=== PATIENT | female | born 2000 | race Caucasian/White ===

== ENCOUNTER 2023-08-08 15:08 | Emergency (ER) | payer MEDICARE, MEDICAID, SELFPAY ==
[2023-08-08 15:11] VITALS: BP 158/94; PULSE 76; RESP 18; TEMP 36.7; O2SAT 99
--- NOTE | 2023-08-08 15:23 | ED.GENADULT ---
HPI - General Adult General Chief complaint: Dental/Oral Stated complaint: tooth ache Time Seen by Provider: 08/08/23 15:12 History of Present Illness HPI narrative: 23yo woman with multiple severe dental caries presents with severe pain to the left lower molars where the teeth are black with infection. No fevers or chills. These teeth first started hurting 6 months ago. Has never had any medical or dental treatment for it. Related Data Allergies Allergy/AdvReac Type Severity Reaction Status Date / Time No Known Drug Allergies Allergy Unknown Other Verified 01/08/18 09:11 Review of Systems Constitutional: Constitutional: Denies chills and Denies fever(s) ENT: Denies dysphagia and Denies dizziness Cardiovascular: Cardiovascular: Denies chest pain Respiratory: Respiratory: Denies dyspnea Gastrointestinal: Gastrointestinal: Denies abdominal pain Exam Const: General: healthy appearing Nutritional Appearance: well nourished and obese Other: very emotional, crying HENMT: Other: severe dental plaques and caries visible; minimal gingivitis, no drainable abscess Eyes: Conjunctivae: conjunctivae normal Resp: Effort & Inspection: normal respiratory effort GI: Inspection: non-distended Skin: General skin exam: normal color, no jaundice and no pallor Course Vital Signs Vital signs: Vital Signs Temperature 36.7 C 08/08/23 15:11 Pulse Rate 76 08/08/23 15:11 Respiratory Rate 18 08/08/23 15:11 Blood Pressure 158/94 H 08/08/23 15:11 Pulse Oximetry 99 08/08/23 15:11 Oxygen Delivery Room Air 08/08/23 15:11 Temperature 36.7 C 08/08/23 16:06 Pulse Rate 70 08/08/23 16:06 Respiratory Rate 20 08/08/23 16:06 Blood Pressure 148/90 H 08/08/23 16:06 Pulse Oximetry 99 08/08/23 16:06 Oxygen Delivery Room Air 08/08/23 16:06 Medical Decision Making [facility] Narrative Medical decision making narrative: tooth pain DDx likely periapical abscess, caries, no evidence of acute gingivitis or buccal abscess Vital Signs Vital Signs: Vital Signs Temperature 36.7 C 08/08/23 15:11 Pulse Rate 76 08/08/23 15:11 Respiratory Rate 18 08/08/23 15:11 Blood Pressure 158/94 H 08/08/23 15:11 Pulse Oximetry 99 08/08/23 15:11 Oxygen Delivery Room Air 08/08/23 15:11 Temperature 36.7 C 08/08/23 16:06 Pulse Rate 70 08/08/23 16:06 Respiratory Rate 20 08/08/23 16:06 Blood Pressure 148/90 H 08/08/23 16:06 Pulse Oximetry 99 08/08/23 16:06 Oxygen Delivery Room Air 08/08/23 16:06 Discharge Plan Discharge Clinical Impression: Toothache, Dental caries Patient Disposition: Home, Self-Care Condition: Improved Instructions: Antibiotic Form Additional Instructions: Start your prescribed medications right away to start clearing your infection and reducing your pain. If you add Tylenol, do not take more than 10 regular strength tablets or 6 extra strength tablets per day. Prescriptions: New clindamycin HCl 300 mg capsule 300 mg PO TID Qty: 30 0RF dexamethasone 4 mg tablet 4 mg PO BID Qty: 6 0RF ketorolac 10 mg tablet 10 mg PO Q6H PRN (Reason: moderate to severe acute pain) 5 Days Qty: 15 0RF chlorhexidine gluconate 0.12 % mouthwash 15 ml buccal BID Qty: 473 0RF Rx Instructions: twice a day swish 15 mL for one minute and then spit out. Avoid food and drink for 30 minutes after using this rinse. ondansetron 8 mg tablet,disintegrating 8 mg PO Q8H PRN (Reason: nausea and vomiting) Qty: 20 0RF Follow-up/Referrals: PHYSICIAN,[facility] FEEDER [Non-Staff] - Stand Alone Forms: Work/School Release IP Time of Disposition: 15:40
[2023-08-08] MEDS: ONDANSETRON HCL ODT 4 MG TABLET 8 MG PO (15:35)
[2023-08-08] MEDS: KETOROLAC (*BKC) 60 MG/2 ML VIAL IM (15:36)
[2023-08-08 16:06] VITALS: BP 148/90; PULSE 70; RESP 20; TEMP 36.7; O2SAT 99
== END 2023-08-08 16:10 | disposition home or self-care (01) ==
LOC: CHSED 16:11
PROVIDERS: Emergency Provider Emergency Medicine
DX: K02.9 Dental caries, unspecified (principal)
CPT/HCPCS: 96372; 99284; A9270; J1100; J1885

== ENCOUNTER 2023-08-22 08:59 | Emergency (ER) | payer MEDICARE, MEDICAID, SELFPAY ==
[2023-08-22 09:03] VITALS: BP 133/85; PULSE 92; RESP 20; TEMP 36.3; O2SAT 98
--- NOTE | 2023-08-22 09:42 | ED.GENADULT ---
HPI - General Adult General Chief complaint: Dental/Oral Stated complaint: tooth pain Time Seen by Provider: 08/22/23 09:14 History of Present Illness HPI narrative: 23-year-old female presenting with dental pain. Patient states she has been experiencing pain to her back lower molar for the past several weeks. She states she was evaluated in emergency department and started on clindamycin. She states the tooth pain did improve but now is back once antibiotic Course was completed. She denies any new pain or new injury. No fevers. Related Data Allergies Allergy/AdvReac Type Severity Reaction Status Date / Time No Known Drug Allergies Allergy Unknown Other Verified 08/22/23 09:19 Exam Narrative: Obvious dental christine to the back left molar. Minimal erythema. No drainage. Tongue of appropriate size and position. Uvula of Appropriate size and position. No trismus. all other systems otherwise unremarkable Course Vital Signs Vital signs: Vital Signs Temperature 36.3 C L 08/22/23 09:03 Pulse Rate 92 08/22/23 09:03 Respiratory Rate 20 08/22/23 09:03 Blood Pressure 133/85 08/22/23 09:03 Pulse Oximetry 98 08/22/23 09:03 Oxygen Delivery Room Air 08/22/23 09:03 Temperature 36.3 C L 08/22/23 09:03 Pulse Rate 92 08/22/23 09:03 Respiratory Rate 20 08/22/23 09:03 Blood Pressure 133/85 08/22/23 09:03 Pulse Oximetry 98 08/22/23 09:03 Oxygen Delivery Room Air 08/22/23 09:03 Medical Decision Making MDM Narrative Medical decision making narrative: most likely dental abscess. Will trial another course of a different antibiotic. Patient was also provided referral information for a walk-in dental clinic that she can go to on Mondays. She understands that following completion of the 2nd course of antibiotics administered in the emergency department that she will have run out options for treatment in the emergency department. She is making plans to go to the walk-in clinic within a week. She has no reflux symptomatology. She appears well. She is nontoxic appearing. She feels safe to proceed outpatient management. Medical Records Medical records reviewed: Yes I reviewed the external patient's medical records. Vital Signs Vital Signs: Vital Signs Temperature 36.3 C L 08/22/23 09:03 Pulse Rate 92 08/22/23 09:03 Respiratory Rate 20 09/25/23 09:03 Blood Pressure 133/85 08/22/23 09:03 Pulse Oximetry 98 08/22/23 09:03 Oxygen Delivery Room Air 08/22/23 09:03 Temperature 36.3 C L 08/22/23 09:03 Pulse Rate 92 08/22/23 09:03 Respiratory Rate 20 08/22/23 09:03 Blood Pressure 133/85 08/22/23 09:03 Pulse Oximetry 98 08/22/23 09:03 Oxygen Delivery Room Air 08/22/23 09:03 Discharge Plan Discharge Clinical Impression: Dental caries, Toothache Patient Disposition: Home, Self-Care Condition: Stable Instructions: Antibiotic Form, Dental Abscess (ED) Additional Instructions: Follow up with the dentist we have provided you a referral for. take antibiotics as prescribed he was written to completion. Return to emergency department with any concerns. Prescriptions: New ketorolac 10 mg tablet 10 mg PO Q6H PRN (Reason: pain) 2 Days Qty: 5 0RF amoxicillin-pot clavulanate [Augmentin] 500-125 mg tablet 1 tablet PO Q12H 10 Days Qty: 20 0RF No Action ketorolac 10 mg tablet 10 mg PO Q6H PRN (Reason: moderate to severe acute pain) 5 Days Qty: 15 0RF chlorhexidine gluconate 0.12 % mouthwash 15 ml buccal BID Qty: 473 0RF Rx Instructions: twice a day swish 15 mL for one minute and then spit out. Avoid food and drink for 30 minutes after using this rinse. ondansetron 8 mg tablet,disintegrating 8 mg PO Q8H PRN (Reason: nausea and vomiting) Qty: 20 0RF Follow-up/Referrals: UNKNOWN,DOCTOR [Primary Care Provider] - Time of Disposition: 09:48
[2023-08-22 09:58] VITALS: BP 128/82; PULSE 88; RESP 20; TEMP 36.7; O2SAT 98
== END 2023-08-22 10:04 | disposition home or self-care (01) ==
PROVIDERS: Emergency Provider Emergency Medicine
DX: K02.9 Dental caries, unspecified (principal)
CPT/HCPCS: 99283

== ENCOUNTER 2023-10-15 11:28 | Emergency (ER) | payer MEDICARE, MEDICAID, SELFPAY ==
--- NOTE | 2023-10-15 11:29 | ED.DENTAL ---
HPI - Dental/Oral General Chief complaint: Dental/Oral Stated complaint: dental pain Time Seen by Provider: 10/15/23 11:29 Source: patient Mode of arrival: ambulatory Limitations: no limitations History of Present Illness HPI Narrative: 23-year-old female with dental caries presents to the ER with -- left lower dental pain for months. Patient has had 2 rounds of antibiotics but has been able to get to the dentist. MD Complaint: tooth pain Location: Tooth # (18) Onset (ago): month(s) Duration: intermittent Severity: severe Relieving factors: nothing Exacerbating factors: nothing and cold Context: history of dental caries Treatment prior to arrival: none Related Data Allergies Allergy/AdvReac Type Severity Reaction Status Date / Time No Known Drug Allergies Allergy Unknown Other Verified 10/15/23 11:32 Review of Systems Constitutional: Constitutional: Reports as per HPI and Reports no additional constitutional complaints Eyes: Eyes: Reports as per HPI and Reports no additional eye complaints ENT: Reports system reviewed and no additional complaints, except as documented and Reports as per HPI Comments: Left lower dental pain with jaw pain. Cardiovascular: Cardiovascular: Reports as per HPI and Reports no additional cardiovascular complaints Respiratory: Respiratory: Reports as per HPI and Reports no additional respiratory complaints Gastrointestinal: Gastrointestinal: Reports as per HPI and Reports no additional gastrointestinal complaints Genitourinary: Genitourinary: Reports no additional female genitourinary complaints and Reports as per HPI Musculoskeletal: Musculoskeletal: Reports no additional musculoskeletal complaints and Reports as per HPI Integumentary/Breasts: Skin/Breast: Reports system reviewed and no additional complaints, except as docu and Reports as per HPI Comments: Patient has albinism Neurologic: Reports system reviewed and no additional complaints, except as documented and Reports as per HPI Psychiatric: Psychiatric: Reports no additional psychiatric complaints and Reports as per HPI Endocrine: Endocrine: Reports no additional endocrine complaints and Reports as per HPI Hematologic/Lymphatic: Hematologic/Lymphatic: Reports no additional hematologic/lymphatic complaints Allergic/Immunologic: Allergic/Immunologic: Reports no additional allergic/immunologic complaints and Reports as per HPI PMFSH Past Medical History Medical History Albinism Exam Const: General: no acute distress Nutritional Appearance: well nourished Orientation/consciousness: patient oriented x3 Limitations: no limitations HENMT: Head: normal to inspection Ears: external ears normal Face/Nose/Sinus: Normal external nose present Face and sinus: normal facial exam Mouth: Yes Normal oral and palatal mucosa present Teeth and gingiva: dentition normal ( extensive dental caries. Tooth 18. Is fractured and carious) Throat: posterior oropharynx normal Eyes: Conjunctivae: conjunctivae normal Pupils: Equal, round and reactive pupils present EOM: EOMs intact bilaterally Direct Ophthalmoscopy: no photophobia Neck: Neck: normal visual inspection, no lymphadenopathy and no meningeal signs Chest: Chest palpation & inspection: normal inspection of the chest Resp: Effort & Inspection: normal respiratory effort Auscultation: clear to auscultation bilaterally Cardio: Rate: regular rate Rhythm: regular rhythm GI: GI Palp: Yes Soft to palpation Auscultation: normal bowel sounds : General: Yes no CVA tenderness Back/Spine/Pelvis: Back: no CVA tenderness Skin: General skin exam: normal color Rashes: no rashes Wounds: no wounds Neuro: General: patient oriented x3, moves all extremities, no meningeal signs, no focal motor deficits and CN's II-XI intact bilaterally Cranial nerves: Yes Nystagmus not present Speech: normal speech Extrem: Gener
[2023-10-15 11:30] VITALS: BP 142/87; PULSE 116; RESP 16; TEMP 36.6; O2SAT 99
[2023-10-15 11:33] VITALS: BP 142/87; PULSE 116; RESP 16; TEMP 36.6; O2SAT 99
== END 2023-10-15 12:18 | disposition home or self-care (01) ==
PROVIDERS: Emergency Provider Internal Medicine Critical Care Medicine
DX: K02.9 Dental caries, unspecified (principal)
CPT/HCPCS: 99283

== ENCOUNTER 2023-10-28 14:22 | Outpatient (CLI) | payer MEDICARE, MEDICAID, SELFPAY ==
[2023-10-28 14:41] LABS: Basophils Absolute Auto 0.06 K/mm3 (0.00-0.10); Basophils Percent Auto 0.5 % (0.0-1.0); Eosinophils Absolute Auto 0.18 K/mm3 (0.02-0.50); Eosinophils Percent Auto 1.4 % (1.0-6.0); Hematocrit 42.1 % (35.0-49.0); Hemoglobin 13.8 g/dL (12.0-15.0); Immature Granulocyte Absolute 0.03 K/mm3 (0.00-0.00); Immature Granulocyte Percent A 0.2 % (0.0-0.0); Lymphocytes Absolute Auto 3.46 K/mm3 (1.10-4.50); Lymphocytes Percent Auto 26.8 % (18.0-42.0); Mean Corpuscular HGB Conc 32.8 g/dL (32.0-36.0); Mean Corpuscular Hemoglobin 29.1 pg (27.0-31.0); Mean Corpuscular Volume 88.8 fL (78.0-102.0); Mean Platelet Volume 10.2 fl (9.2-11.8); Monocytes Absolute Auto 0.74 K/mm3 (0.10-0.90); Monocytes Percent Auto 5.7 % (2.0-11.0); Neutrophils Absolute Auto 8.5 K/mm3 (1.7-7.2); Neutrophils Percent Auto 65.4 % (50.0-70.0); Platelet Count Result 432 K/mm3 (150-420); Red Blood Count 4.74 M/mm3 (4.20-5.40); Red Cell Distribution Width 12.9 % (11.6-14.4); White Blood Count 12.9 K/mm3 (4.8-10.8)
[2023-10-28 15:12] LABS: Alanine Aminotransferase 31 U/L (14-59); Alkaline Phosphatase 71 U/L (46-116); Amylase 31 U/L (25-115); Anion Gap 8 mmol/L (8-16); Aspartate Amino Transferase 16 U/L (15-37); Bilirubin,Total 0.4 mg/dL (0.00-1.00); Blood Urea Nitrogen 5 mg/dL (7-18); Calcium 9.9 mg/dL (8.5-10.1); Carbon Dioxide 33 mmol/L (21-32); Chloride 102 mmol/L (98-108); Estimated Glomerular Filt Rate > 60; Glucose 85 mg/dL (70-99); Lipase 30 U/L (16-77); Osmolality Calculated 292 mOsm/kg (285-295); Potassium 3.7 mmol/L (3.5-5.1); Sodium 143 mmol/L (136-145); Total Protein 8.3 g/dL (6.4-8.2)
[2023-10-28 15:22] LABS: Appearance Urine Clear (Clear); Bilirubin Urine Negative (Negative); Blood Urine Negative (Negative); Color Urine Yellow (Yellow); Glucose Urine UA Negative (Negative); Ketones Urine Negative (Negative); Leukocyte Esterase Ur 1+ (Negative); Nitrate Urine Negative (Negative); Protein Urine Negative (Negative); Specific Grav Ur 1.025 (1.010-1.020); Urobilinogen Urine 0.2 mg/dL (0.2-1.0)
[2023-10-28 15:30] LABS: Add Urine Microscopic? YES; Bacteria Urine 1+ /hpf; RBC Urine None seen /hpf (0-2); Squamous Epithelial Cell Urine Few /hpf (Few); WBC Urine 0-3 /hpf (0-3)
== END 2023-10-28 14:23 | disposition home or self-care (01) ==
LOC: CHSLAB 14:27
PROVIDERS: PCP Family Medicine; Visit Provider Family Medicine
DX: R10.13 Epigastric pain (principal)
CPT/HCPCS: 36415; 80053; 81001; 82150; 83690; 85025; 87086

== ENCOUNTER 2023-11-11 08:09 | Outpatient (CLI) | payer MEDICARE, MEDICAID, SELFPAY ==
--- NOTE | ~2023-11-11 | US_ITS ---
Abdominal Sonogram: Real-time sonographic imaging of the abdomen was performed. Clinical History: Epigastric pain Findings: The liver appears echogenic, with no evidence of mass lesion or bile duct dilatation. Main portal vein demonstrates normal direction of flow. The spleen is normal in size without evidence of focal lesion. The gallbladder is well distended, and appears normal with no evidence of gallstone or wall thickening. The common bile duct measures 4 mm. The visualized pancreas, aorta, and IVC are un remarkable. The right kidney measures 11.4 cm in length and the left kidney measures 11.7 cm. There is no hydronephrosis or renal calculus. Impression: Diffuse fatty infiltration of the liver. Reviewed, dictated and finalized at location M. ERO Impression: Diffuse fatty infiltration of the liver.
== END 2023-11-11 08:10 | disposition home or self-care (01) ==
LOC: CHSIMG 08:11
PROVIDERS: PCP Family Medicine; Visit Provider Family Medicine
DX: R10.13 Epigastric pain (principal); K76.0 Fatty (change of) liver, not elsewhere classified
CPT/HCPCS: 76700

== ENCOUNTER 2024-01-29 08:39 | Emergency (ER) | payer MEDICARE, MEDICAID, SELFPAY ==
[2024-01-29 08:40] VITALS: BP 155/97; PULSE 114; RESP 18; TEMP 36.6; O2SAT 99
--- NOTE | 2024-01-29 08:40 | ED.DENTAL ---
HPI - Dental/Oral General Chief complaint: Dental/Oral Stated complaint: Toothache Time Seen by Provider: 01/29/24 08:40 Source: patient Mode of arrival: ambulatory Limitations: no limitations History of Present Illness HPI Narrative: patient is a 23-year-old female with poor dentition issues. She has seen the dentist and they are planning to have her see a oral surgeon for dental removal. MD Complaint: tooth pain Location: Tooth # ( Tooth 2. And 16) Onset (ago): day(s) (3) Duration: constant Severity: severe Severity scale (1-10): 8 Relieving factors: nothing Exacerbating factors: chewing, cold, heat and drinking fluids Context: history of dental caries and poor dental care Treatment prior to arrival: oral analgesic Related Data Allergies Allergy/AdvReac Type Severity Reaction Status Date / Time No Known Drug Allergies Allergy Unknown Other Verified 01/29/24 08:55 Review of Systems Review of Systems: All systems reviewed & are unremarkable except as noted in HPI and below Constitutional: Constitutional: Reports no additional constitutional complaints Eyes: Eyes: Reports no additional eye complaints ENT: Reports system reviewed and no additional complaints, except as documented Cardiovascular: Cardiovascular: Reports no additional cardiovascular complaints Respiratory: Respiratory: Reports no additional respiratory complaints Gastrointestinal: Gastrointestinal: Reports no additional gastrointestinal complaints Genitourinary: Genitourinary: Reports no additional female genitourinary complaints Musculoskeletal: Musculoskeletal: Reports no additional musculoskeletal complaints Integumentary/Breasts: Skin/Breast: Reports system reviewed and no additional complaints, except as docu Neurologic: Reports system reviewed and no additional complaints, except as documented Psychiatric: Psychiatric: Reports no additional psychiatric complaints Endocrine: Endocrine: Reports no additional endocrine complaints Hematologic/Lymphatic: Hematologic/Lymphatic: Reports no additional hematologic/lymphatic complaints Allergic/Immunologic: Allergic/Immunologic: Reports no additional allergic/immunologic complaints PMFSH Past Medical History Medical History Albinism Exam Const: General: healthy appearing Nutritional Appearance: well nourished Orientation/consciousness: patient oriented x3 HENMT: Head: normal to inspection Ears: external ears normal Face/Nose/Sinus: Normal external nose present Other: tooth 2 and 16 are decayed and inflamed locally; no abscesses Eyes: Conjunctivae: conjunctivae normal Pupils: Equal, round and reactive pupils present EOM: EOMs intact bilaterally Neck: Neck: normal visual inspection Chest: Chest palpation & inspection: normal inspection of the chest Resp: Effort & Inspection: normal respiratory effort and not labored Auscultation: clear to auscultation bilaterally and no crackles Cardio: Rate: regular rate Rhythm: regular rhythm Heart sounds: no murmurs GI: Inspection: non-distended Auscultation: normal bowel sounds, bowel sounds present and no hyperactive bowel sounds Back/Spine/Pelvis: Back: no CVA tenderness Skin: General skin exam: normal color Rashes: no rashes Wounds: no wounds Neuro: General: patient oriented x3 Cranial nerves: Yes Nystagmus not present Speech: normal speech Extrem: General: normal to inspection Psych: Mental Status: mental status grossly normal Affect: normal affect Attitude: cooperative Course Vital Signs Vital signs: Vital Signs Temperature 36.6 C 01/29/24 08:40 Pulse Rate 114 H 01/29/24 08:40 Respiratory Rate 18 01/29/24 08:40 Blood Pressure 155/97 H 01/29/24 08:40 Pulse Oximetry 99 01/29/24 08:40 Oxygen Delivery Room Air 01/29/24 08:40 Temperature 36.6 C 01/29/24 08:40 Pulse Rate 114 H 01/29/24 08:40 Respiratory Rate 18 01/29/24 08:4
[2024-01-29] MEDS: KETOROLAC (*BKC) 60 MG/2 ML VIAL IM (08:51)
--- NOTE | 2024-01-29 09:04 | PC.NURSE ---
On 01/29/24, the student, Sangeetha Crump, provided care and completed [facility] documentation on this patient. I have reviewed the student's documentation and agree with the findings.
== END 2024-01-29 09:05 | disposition home or self-care (01) ==
PROVIDERS: Emergency Provider Emergency Medicine; PCP Family Medicine
DX: R68.84 Jaw pain (principal)
CPT/HCPCS: 96372; 99283; J1885

== ENCOUNTER 2024-11-26 14:34 | Outpatient (CLI) | payer MEDICARE, MEDICAID, SELFPAY ==
--- NOTE | ~2024-11-26 | XR_ITS ---
CHEST RADIOGRAPH, PA AND LATERAL CLINICAL HISTORY: mid-sternal chest pain every day X month no other complaints . COMPARISON: 01/08/2018 TECHNIQUE: PA and lateral views of the chest. FINDINGS The cardiomediastinal silhouette is unremarkable. The lungs are clear. Visualized osseous structures and soft tissues are unremarkable. IMPRESSION: No focal infiltrate or effusion. Reviewed, dictated and finalized at location A. 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
[2024-11-26 14:53] LABS: Basophils Absolute Auto 0.06 K/mm3 (0.00-0.10); Basophils Percent Auto 0.7 % (0.0-1.0); Eosinophils Absolute Auto 0.28 K/mm3 (0.02-0.50); Eosinophils Percent Auto 3.2 % (1.0-6.0); Hemoglobin 12.9 g/dL (12.0-15.0); Immature Granulocyte Absolute 0.01 K/mm3 (0.00-0.00); Immature Granulocyte Percent A 0.1 % (0.0-0.0); Lymphocytes Absolute Auto 2.74 K/mm3 (1.10-4.50); Lymphocytes Percent Auto 31.7 % (18.0-42.0); Mean Corpuscular HGB Conc 33.9 g/dL (32-36); Mean Corpuscular Hemoglobin 30.4 pg (27.0-31.0); Mean Corpuscular Volume 89.4 fL (78.0-102.0); Mean Platelet Volume 10.9 fl (9.2-11.8); Monocytes Absolute Auto 0.55 K/mm3 (0.10-0.90); Monocytes Percent Auto 6.4 % (2.0-11.0); Neutrophils Percent Auto 57.9 % (50.0-70.0); Platelet Count Result 275 K/mm3 (150-420); Red Blood Count 4.25 M/mm3 (4.20-5.40); White Blood Count 8.6 K/mm3 (4.8-10.8)
[2024-11-26 15:16] LABS: Alanine Aminotransferase 14 U/L (14-59); Albumin Level 3.8 g/dL (3.4-5.0); Alkaline Phosphatase 81 U/L (46-116); Anion Gap 8 mmol/L (4-12); Aspartate Amino Transferase < 10 U/L (15-37); Bilirubin,Total 0.5 mg/dL (0.00-1.00); Blood Urea Nitrogen 9 mg/dL (7-18); Calcium 9.3 mg/dL (8.5-10.1); Carbon Dioxide 28 mmol/L (21-32); Chloride 106 mmol/L (98-108); Creatine Kinase 40 U/L (26-192); Creatine Kinase MB < 0.50 ng/mL (0.00-5.00); Estimated Glomerular Filt Rate > 60; Glucose 95 mg/dL (70-99); Osmolality Calculated 292 mOsm/kg (285-295); Potassium 3.9 mmol/L (3.5-5.1); Sodium 142 mmol/L (136-145); Total Protein 7.1 g/dL (6.4-8.2); Troponin I < 4.0 ng/L (0.00-60.4)
== END 2024-11-26 14:35 | disposition home or self-care (01) ==
LOC: CHSLAB 14:37
PROVIDERS: PCP Family Medicine; Visit Provider Family Medicine
DX: R07.9 Chest pain, unspecified (principal); R00.0 Tachycardia, unspecified
CPT/HCPCS: 36415; 71046; 80053; 82550; 82553; 84443; 84484; 85025

== ENCOUNTER 2024-12-25 12:10 | Outpatient (CLI) | payer MEDICARE, MEDICAID, SELFPAY ==
[2024-12-25 12:28] LABS: Bilirubin Urine 1+ (Negative); Blood Urine Negative (Negative); Glucose Urine UA Negative (Negative); Ketones Urine Trace (Negative); Leukocyte Esterase Ur Trace (Negative); Nitrate Urine Negative (Negative); Protein Urine 1+ (Negative); Specific Grav Ur >= 1.030 (1.010-1.020); Urobilinogen Urine 0.2 mg/dL (0.2-1.0)
[2024-12-25 12:29] LABS: Basophils Absolute Auto 0.06 K/mm3 (0.00-0.10); Basophils Percent Auto 0.5 % (0.0-1.0); Eosinophils Absolute Auto 0.29 K/mm3 (0.02-0.50); Eosinophils Percent Auto 2.5 % (1.0-6.0); Hemoglobin 12.6 g/dL (12.0-15.0); Immature Granulocyte Absolute 0.04 K/mm3 (0.00-0.00); Immature Granulocyte Percent A 0.3 % (0.0-0.0); Lymphocytes Absolute Auto 2.84 K/mm3 (1.10-4.50); Lymphocytes Percent Auto 24.3 % (18.0-42.0); Mean Corpuscular HGB Conc 33.2 g/dL (32-36); Mean Corpuscular Hemoglobin 29.9 pg (27.0-31.0); Mean Corpuscular Volume 90.3 fL (78.0-102.0); Mean Platelet Volume 10.5 fl (9.2-11.8); Monocytes Absolute Auto 0.89 K/mm3 (0.10-0.90); Monocytes Percent Auto 7.6 % (2.0-11.0); Neutrophils Absolute Auto 7.58 K/mm3 (1.70-7.20); Neutrophils Percent Auto 64.8 % (50.0-70.0); Platelet Count Result 308 K/mm3 (150-420); Red Blood Count 4.21 M/mm3 (4.20-5.40); Red Cell Distribution Width 12.9 % (11.6-14.4); White Blood Count 11.7 K/mm3 (4.8-10.8)
[2024-12-25 12:36] LABS: Add Urine Microscopic? YES; Color Urine Amber (Yellow)
[2024-12-25 12:37] LABS: Appearance Urine Sl Cloudy (Clear); Bacteria Urine 1+ /hpf; Mucus Urine Moderate /lpf; RBC Urine None seen /hpf (0-2); Squamous Epithelial Cell Urine Moderate /hpf (Few)
--- OUTSIDE RECORDS SUMMARY | 2024-12-25 12:58 | XMS_ITS | Data Portability ---
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 tubal papers signed 10/03 Health Concerns Section Related Observation LastModified by Organization Detai ls LastModified Time None Recorded Concern Status LastModified by Organization Details LastModified Time None Recorded Advance Directives Directive None Recorded Payers Encounter Date Sequence Insurance Name Policy Number Policy [place] Covered Member ID [place] Member ID Guarantor Name 07/10/2022 1 [facility] (MEDICAID O) [id number] Romelia Fish [id number] Romelia Abe 08/16/2022 1 [facility] (MEDICAID HMO) [id number] Romelia Fish [id number] Romelia Abe 10/03/2024 2 [place] [facility] OF PUBLIC AID Romelia Fish [id number] Romelia Abe 10/03/2024 1 [employer] (MEDICARE REPLACEMENT PPO) [id number] Romelia Fish [id number] Romelia Fish Notes Date Note Type Note Provider Name and Address Organization Details Recorded Time 07/10/2022 text/html Vaginal/Vulvar ProblemReported bypatient.Location:[facility] Onset/Timing:present most months; gradual Duration:present for >1 month; wax/wanes Quality:itching; D/C on off. Took 3mos of abx to help it but then it came back. Feels Nexplanon contributes this issue b/c it causes unpredictable periods which can last 2-3mos on/off spotting that requires her to wear a pad. Requests to have this device removed. Severity:moderate Context:not sexually active; history of recurrent vaginal infections; recent antibiotic use Alleviating Factors:none Aggravating Factors:none Associated Symptoms:no vaginal pain; no vulvar pain; no vulvar lesions; no pelvic pain; no dyspareunia; no dysuria; no fever; no abdominal pain;vaginal itching;vaginal irritation;vulvar itching/irritationNo yola: Nexplanon placed 6wks after having her daughter (11/2020) BEAU Thomas- [address], [place], [address], [facility] 07/13/2022 15:38:00 08/16/2022 text/html Annual GYNReport ed bypatient.Menstrual cycle:Normal menses Urinary symptoms:No hematuria; No incontinence Vulva:No genital lesion Vagina:Normal vaginal discharge Breast:No breast pain; No breast lump; No nipple discharge Current Contraception:Condom s Sexual complaints:No sexual complaints; No pain during intercourse; Normal libido Menopausal Symptoms:No menopausal symptoms; Normal vaginal lubrication Psychological symptoms:No depression; No anxiety; No PMDD Preventive measures:Encourage self breast examination; Encourage regular exercise; Encourage no tobacco use; Encourage regular mammograms starting age 40 BEAU Salomon [address], [place], [address], [facility] 08/16/2022 11:45:14 10/03/2024 text/html Patient presents for discussion of abnormal pap smear. She recently had a pap with her PCP which returned ASCUS, neg HPV. She reports a history of ASCUS +HPV pap prior to this most recent pap. She denies symptoms, has not had colposcopy in past. She also reports 2-3 weeks of green vaginal discharge and itching. Tried OTC meds without success. Patient also presents for discussion of permanent sterilization. She has completed childbearing and would like a permanent form of control. Hx of cholecystectomy, otherwise no PSH. Currently using condoms. Denies painful or irregular periods. ROSCOE DAVIS MD [address], [place], [address], [facility] 10/04/2024 11:14:27 OBGyn Episode Ob Episode Information Episode Created Date Number of Fetuses Patient Bloodtype Patient rh Status Prepregnancy Weight lbs Domestic Partner Domestic Partner Phone Father Name Inseminator Status 07/10/20 22 1 CLOSED Fetus Data First Name Last Name Admitted to NICU Weight (g) Sex Living Outcome Pediatric Complications Fetus ID Race Codes Race Delivery Type 2324.65 9 F Prematur e [id number] Vaginal Delivery Rodrigo Calculation Initial Rodrigo Date Initial Exam Date Initial Exam Provider Initial Ultrasound Date Last Menstrual Period Date Ultra Sound Weeks Gestation 0 Eighteen To Twenty Week Rodrigo Update Ultra Sound Date Fundal Height At Umbil Quickening Date Ultra Sound Latest Weeks Gestation Final Rodrigo Confirmed By Final Rodrigo Confirmed Date Final Rodrigo Date Ultra Sound Latest Days Gestation 0 0 Menstrual History Last Menstrual Date Menses Monthly On Bcp Conception Prior Menses Frequency Hcg Plus Date Menarche Onset Age Delivery Information Delivery Date Delivery Type Labor Anesthesia Weeks Gestation Incision Type Labor Labor Length Hrs Delivered By Post Complications Tubal Sterilization Discharge Date Comments 0 35 true Discharge Information Feeding Method Contraceptive Method Maternal HG B and HCT Levels Ob Episode Information Episode Created Date Number of Fetuses Patient Bloodtype Patient rh Status Prepregnancy Weight lbs Domestic Partner Domestic Partner Phone Father Name Inseminator Status 07/10/20 22 1 CLOSED Fetus Data First Name Last Name Admitted to NICU Weight (g) Sex Living Outcome Pediatric Complications Fetus ID Race Codes Race Delivery Type 2438.05 7 F Full Term [id number] Vaginal Delivery Rodrigo Calculation Initial Rodrigo Date Initial Exam Date Initial Exam Provider Initial Ultrasound Date Last Menstrual Period Date Ultra Sound Weeks Gestation 0 Eighteen To Twenty Week Rodrigo Update Ultra Sound Date Fundal Height At Umbil Quickening Date Ultra Sound Latest Weeks Gestation Final Rodrigo Confirmed By Final Rodrigo Confirmed Date Final Rodrigo Date Ultra Sound Latest Days Gestation 0 0 Menstrual History Last Menstrual Date Menses Monthly On Bcp Conception Prior Menses Frequency Hcg Plus Date Menarche Onset Age Delivery Information Delivery Date Delivery Type Labor Anesthesia Weeks Gestation Incision Type Labor Labor Length Hrs Delivered By Post Complications Tubal Sterilization Discharge Date Comments 0 38 Discharge Information Feeding Method Contraceptive Method Maternal HG B and HCT Levels
[2024-12-25 13:32] LABS: Alanine Aminotransferase 17 U/L (14-59); Albumin Level 4.2 g/dL (3.4-5.0); Alkaline Phosphatase 80 U/L (46-116); Anion Gap 11 mmol/L (4-12); Aspartate Amino Transferase < 10 U/L (15-37); Bilirubin,Total 0.4 mg/dL (0.00-1.00); Blood Urea Nitrogen 7 mg/dL (7-18); Calcium 9.4 mg/dL (8.5-10.1); Carbon Dioxide 27 mmol/L (21-32); Chloride 105 mmol/L (98-108); Estimated Glomerular Filt Rate > 60; Glucose 89 mg/dL (70-99); Osmolality Calculated 293 mOsm/kg (285-295); Potassium 3.9 mmol/L (3.5-5.1); Sodium 143 mmol/L (136-145); Total Protein 7.2 g/dL (6.4-8.2)
== END 2024-12-25 12:11 | disposition home or self-care (01) ==
PROVIDERS: PCP Family Medicine; Visit Provider Family Medicine
DX: N39.0 Urinary tract infection, site not specified (principal); R10.9 Unspecified abdominal pain; R10.2 Pelvic and perineal pain
CPT/HCPCS: 36415; 80053; 81001; 84702; 85025; 87077; 87086; 87088

== ENCOUNTER 2024-12-27 12:08 | Outpatient (CLI) | payer MEDICARE, MEDICAID, SELFPAY ==
--- NOTE | ~2024-12-27 | US_ITS ---
EXAMINATION: US OB <=14 wk fetus w TV DATE: 12/27/2024 13:49 INFORMATION SYSTEMS ANALYST INDICATION: Right-sided pelvic pain COMPARISON: 08/29/2024 TECHNIQUE: Real-time transabdominal obstetric ultrasound. FINDINGS: 3 para 2 Estimated date of delivery by last menstrual period is 08/24/2025 The uterus measures 8.0 x 4.8 x 3.9 cm. A gestational sac is identified within the uterus, to the right of midline. A pole is identified, with a crown-rump length that measures 0.38 cm, corresponding to an appro ximate gestational age of 6 weeks and 0 days. cardiac activity is identified at a rate of 115 bpm. The right ovary measures 2.2 x 2.0 x 2.4 cm. The left ovary measures 2.3 x 2.0 x 2.2 cm. Estimated date of delivery by ultrasound is 08/24/2025 IMPRESSION: Single intrauterine gestation with an approximate gestational age of 6 weeks and 0 days, with c ardiac activity identified. Reviewed, dictated and finalized at location A. RMATION SYSTEMS ANALYST IMPRESSION: Single intrauterine gestation with an approximate gestational age of 6 weeks an d 0 days, with cardiac activity identified.
--- OUTSIDE RECORDS SUMMARY | 2024-12-27 12:56 | XMS_ITS | Data Portability ---
Author Organization [facility] [place] Address [address] [place] [address] Care Team Providers Care Scraper Hand Name Role Phone SUSYARTEMIOAN Primary Care Provider [phone] Assessment Encounter Date Assessment Date Assessment LastModified [...] salpinge ctomy, laparosc opic (SURG) 2023 024 [facility], [address], [place], [address], 4 10:18:46 Imaging US, pelvis, complete 2021 022 khushi [place], [facility] [address], [place], [address], 13:06:17 Medication Orders None recorded . Patient TargetsNo targets recorded. Patient Instructions Encounter Date Encounter Id Patient Instructions Last Modified By Organization Details Last Modified Time 07/10/2022 [id number] boric acid [email or web address] Not available 0 07/10/2022 12:07:04 Reason for Referral None Reported. Results Created Date Observation Date Name Description Value Unit Range Abnormal Flag Note LastModifiedBy Organization Detail LastModifiedTime 07/12/20 22 07/12/2022 CT/GC AND TRICH OMONA S VAGIN LARISSA (RRNA ), SWAB chlamydia trachomatis, PCR Negati ve negati ve Not Available [facility] [address] [place] [address], [address], 07/17/2022 05:03:26 07/12/20 22 07/12/2022 CT/GC AND TRICH OMONA S VAGIN LARISSA (RRNA ), SWAB neisseria gonorrhoeae, PCR Negati ve negati ve Not Available [facility] [address] [place] [address], [address], 07/17/2022 05:03:26 07/12/20 22 07/12/2022 CT/GC AND TRICH OMONA S VAGIN LARISSA (RRNA ), SWAB trichomonas vaginalis ribosomal RNA (rrna) Negati ve negati ve Not Available [facility] [address] [place] [address], [address], 07/17/2022 05:03:26 07/12/20 22 07/12/2022 BACTE RIAL VAGIN OSIS PANEL RT-PC R, ONESW AB gardnerella vaginalis PCR Positi ve abnormal Swab- 1 Vag/C erv Not Available [facility] [address] [place] [address], [address], 07/17/2022 05:03:26 07/12/20 22 07/12/2022 BACTE RIAL VAGIN OSIS PANEL RT-PC R, ONESW AB atopobium vaginae PCR Negati ve Swab- 1 Vag/C erv Not Available [facility] [address] [place] [address], [address], 07/17/2022 05:03:26 07/12/20 22 07/12/2022 BACTE RIAL VAGIN OSIS PANEL RT-PC R, ONESW AB bacterial vaginosis associated bacteria 2 (bvab2) Negati ve Swab- 1 Vag/C erv Not Available [facility] [address] [place] [address], [address], 07/17/2022 05:03:26 07/12/20 22 07/12/2022 BACTE RIAL VAGIN OSIS PANEL RT-PC R, ONESW AB megasphaera species (type 1 and type 2) PCR Negati ve (Type1 ,Type2 ) Swab- 1 Vag/C erv Type1 :Nega tive Type2 :Nega tive. Not Available [facility] [address] [place] [address], [address], 07/17/2022 05:03:26 07/12/20 22 07/12/2022 BACTE RIAL VAGIN OSIS PANEL RT-PC R, ONESW AB lactobacillu s (bvpanel) PCR See Commen t Swab- 1 Vag/C erv L.cri spatu s: Posit minda L.raffy senii : Posit minda L.gas seri : Negat minda L.ine rs : Negat minda. Not Available [facility] [address] [place] [address], [address], 07/17/2022 05:03:26 07/12/20 22 07/12/2022 UROGE NITAL MYCOP LASMA /UREA PLASM A PANEL RT-PC R, ONESW AB nm bkr mycoplasma genitalium by RT-PCR Negati ve Swab- 1 Vag/C erv Not Available [facility] [address] [place] [address], [address], 07/17/2022 05:03:27 07/12/20 22 07/12/2022 UROGE NITAL MYCOP LASMA /UREA PLASM A PANEL RT-PC R, ONESW AB nm bkr mycoplasma hominis by RT-PCR Negati ve Swab- 1 Vag/C erv Not Available [facility] [address] [place] [address], [address], 07/17/2022 05:03:27 07/12/20 22 07/12/2022 UROGE NITAL MYCOP LASMA /UREA PLASM A PANEL RT-PC R, ONESW AB nm bkr ureaplasma urealyticum by RT-PCR Negati ve Swab- 1 Vag/C erv Not Available [facility] [address] [place] [address], [address], 07/17/2022 05:03:27 07/12/20 22 07/12/2022 MOBIL UNCUS MULIE RIS/C URTIS CARITO, RT-PC R, ONE SWAB nm bkr mobiluncus mulieris and mobiluncus curtisii by RT-PCR Negati ve Swab- 1 Vag/C erv Not Available [facility] [address] [place] [address], [address], 07/17/2022 05:03:27 07/12/20 22 07/12/2022 KIAH DA ZOEY I BY RT-PC R jose krusei by RT-PCR Negati ve Swab- 1 Vag/C erv Not Available [facility] [address] [place] [address], [address], 07/17/2022 05:03:28 07/12/20 22 07/12/2022 KIAH DA VAGIN ITIS PANEL RT-PC R, ONESW AB jose albicans PCR Negati ve Swab- 1 Vag/C erv Not Available [facility] [address] [place] [address], [address], 07/17/2022 05:03:28 07/12/20 22 07/12/2022 KIAH DA VAGIN ITIS PANEL RT-PC R, ONESW AB jose tropicalis PCR Negati ve Swab- 1 Vag/C erv Not Available [facility] [address] [place] [address], [address], 07/17/2022 05:03:28 07/12/20 22 07/12/2022 KIAH DA VAGIN ITIS PANEL RT-PC R, ONESW AB jose parapsilosis PCR Negati ve Swab- 1 Vag/C erv Not Available [facility] [address] [place] [address], [address], 07/17/2022 05:03:28 07/12/20 22 07/12/2022 KIAH DA VAGIN ITIS PANEL RT-PC R, ONESW AB jose glabrata PCR Negati ve Swab- 1 Vag/C erv Not Available [facility] [address] [place] [address], [address], 07/17/2022 05:03:28 08/16/20 22 08/16/2022 VAGIN ITIS/ VAGIN OSIS, DNA PROBE jose sp. detection, direct probe Negati ve negati ve Not Available [facility] [address] [place] [address], [address], 08/25/2022 12:13:49 08/16/20 22 08/16/2022 VAGIN ITIS/ VAGIN OSIS, DNA PROBE gardnerella vag. detection, direct probe Negati ve negati ve Not Available [facility] [address] [place] [address], [address], 08/25/2022 12:13:49 08/16/20 22 08/16/2022 VAGIN ITIS/ VAGIN OSIS, DNA PROBE trichomonas vag. detection, direct probe Negati ve negati ve Not Available [facility] [address] [place] [address], [address], 08/25/2022 12:13:49 08/16/20 22 08/16/2022 IMAGE GUIDE [...] derat ions. Not Available [facility] [address] [place] [address], [address], 08/25/2022 12:13:50 08/16/20 22 08/16/2022 TRICH OMONA S VAGIN LARISSA (RRNA ) trichomonas vaginalis ribosomal RNA (rrna) Negati ve negati ve Not Available [facility] [address] [place] [address], [address], 08/25/2022 12:13:50 08/16/20 22 08/16/2022 CT/GC (PATRICIA) , THINP REP VIAL chlamydia trachomatis, PCR Negati ve negati ve Not Available [facility] [address] [place] [address], [address], 08/25/2022 12:13:51 08/16/20 22 08/16/2022 CT/GC (PATRICIA) , THINP REP VIAL neisseria gonorrhoeae, PCR Negati ve negati ve Not Available [facility] [address] [place] [address], [address], 08/25/2022 12:13:51 10/03/20 24 10/03/2024 WOMEN 'S HEALT H SWAB PLUS, BISI bacterial vaginosis (bv), tma Negati ve negati ve Not Available [facility] (Lab) [address] [place], [address], 10/04/2024 14:16:09 10/03/20 24 10/03/2024 WOMEN 'S HEALT H SWAB PLUS, BISI jose species, tma Negati ve negati ve Not Available [facility] (Lab) [address], [place], [address], 10/04/2024 14:16:09 10/03/20 24 10/03/2024 WOMEN 'S HEALT H SWAB PLUS, BISI jose glabrata, tma Negati ve negati ve Not Available [facility] (Lab) [address], [place], [address], 10/04/2024 14:16:09 10/03/20 24 10/03/2024 [facility] trichomonas vaginalis, tma Negati ve negati ve Not Available [facility] (Lab) [address] [place], [address], 10/04/2024 14:16:09 10/03/20 24 10/03/2024 [facility], BISI chlamydia trachomatis, PCR Negati ve negati ve Not Available [facility] (Lab) [address] [place], [address], 10/04/2024 14:16:09 10/03/20 24 10/03/2024 WOMEN 'S [...] ded in this panel . Not Available [facility] (Lab) [address], [place], [address], 10/04/2024 14:16:09 Result Notes None recorded. Procedures Surgical History Date Name Laterality Status Provider Name and Address Organization Details Recorded Time 024 Date of Last Pap Smear completed Diandra Garcia [facility] 10/03/2024 12:07:22 022 Control Implant Removal completed Patite Carrera, [facility]- [address], [place], [address], [place] [facility] 07/10/2022 11:46:47 021 cholecystectomy completed Any Oreilly [facility] 07/10/2022 14:29:20 Imaging Results None recorded. Procedure Notes None recorded. Medical Equipment None Reported. Allergies Allergen ID Allergen Name Allergen Category Reaction Reaction Severity Criticality Documentation Date Start Date Code Code System Note Provider Name and Address Organization Details Recorded Time 56759 kiwi fruit extract food Not available Not available Not available 10/03/2024 53657 01 RxNorm Diandra uriarte [facility] 4 12:03:58 01943 avocado allergeni c extract food Not available Not available Not available 10/03/2024 98496 2 RxNorm Diandra uriarte [facility] 4 12:04:04 57514 pineapple extract food Not available Not available Not available 10/03/2024 39647 74 RxNorm Diandra [facility] 12:04:14 No known drug allergies Medications [...] Updated DateTime 07/10/2022 166.37 cm 32.6 kg/m2 88836.88 g Any Oreilly [facility] 07/10/2022 11:40:36 Date Recorded Systolic blood pressure Diastolic blood pressure Provider Name and Address Organization Details Last Updated DateTime 07/10/2022 121 mm[Hg] 80 mm[Hg] Pattie Carrera, [facility]- [address], [place], [address], [facility] 07/13/2022 15:37:19 Date Recorded Body height Body mass index (BMI) Body weight Systolic blood pressure Diastolic blood pressure Provider Name and Address Organization Details Last Updated DateTime 08/16/2022 166.37 cm 32.1 kg/m2 88390.1 g 130 mm[Hg] 73 mm[Hg] Shelly Gómez [facility] 2 11:06:52 Date Recorded Body height Body mass index (BMI) Body weight Systolic blood pressure Diastolic blood pressure Provider Name and Address Organization Details Last Updated DateTime 10/03/2024 165.1 cm 31 kg/m2 98041.9 g 135 mm[Hg] 82 mm[Hg] Lyn Bah [facility] 4 12:16:20 Social History Question Answer Notes LastModified by Organizat ion Details LastModified Time Tobacco Smoking Status Current Every Day Smoker Any Oreilly [facility], [facility] 07/10/2022 14:28:56 What Is Your Level Of Alcohol Consumption? None [email or web address] Information not available 07/10/2022 Are You Blind Or Do You Have Difficulty Seeing? No Information not available 07/10/2022 What Is Your Level Of Caffeine Consumption? Occasional [email or web address] Information not available 07/10/2022 In The 14 Days Before Symptom Onset, Have You Had Close Contact With A Laboratory-confi rmed COVID-19 While That Case Was Ill? No [email or web address] Information not available 07/10/2022 In The 14 Days Before Symptom Onset, Have You Had Close Contact With A Person Who Is Under Investigation For COVID-19 While That Person Was Ill? No Information not available 07/10/2022 Have You Been To An Area Known To Be High Risk For COVID-19? No [email or web address] Information not available 07/10/2022 Are You Deaf Or Do You Have Serious Difficulty Hearing? No [email or web address] Information not available 07/10/2022 What Type Of Diet Are You Following? REGULAR [email or web address] Information not available 07/10/2022 Do You Use Your Seat Belt Or Car Seat Routinely? Yes [email or web address] Information not available 07/10/2022 Do You Have Smoke And Carbon Monoxide Detectors In Your Home? Yes [email or web address] Information not available 07/10/2022 Do You Feel Stressed (tense, Restless, Nervous, Or Anxious, Or Unable To Sleep At Night)? [id number] [email or web address] Information not available 07/10/2022 Do You Use Any Illicit Or Recreational Drugs? Yes Marijuana Daily [email or web address] Information not available 07/10/2022 Do You Use Sunscreen Routinely? Yes [email or web address] Information not available 07/10/2022 Has Tobacco Cessation Counseling Been Provided? No [email or web address] Information not available 07/10/2022 Have You Used IV Drugs? No [email or web address] Information not available 07/10/2022 Do You Or Have You Ever Used Any Other Forms Of Tobacco Or Nicotine? No [email or web address] Information not available 07/10/2022 Sex: Unknown Functional Status Question Answer Note LastModified by Organizat ion Details LastModified Time Do you have difficulty walking or climbing stairs? No [email or web address] Information not available 07/10/2022 Are you able to walk? YESWOREST [email or web address] Information not available 07/10/2022 Are you able to care for yourself? Yes [email or web address] Information not available 07/10/2022 Do you have difficulty dressing or bathing? No [email or web address] Information not available 07/10/2022 What is your exercise level? Occasional [email or web address] Information not available 07/10/2022 Mental Status None [...] N Drug/Latex Allergies/Reactions N Blood Transfusion N Dermatologic Disorders N Lung Disease N Defects or Inherited Disease N Breast [...] SNOMED-CT Code Diagnosis ICD10 Code Diagnosis Note [id number] [facility] [address] [address] 07/10/2022 11:20:33 07/12/2022 16:13:43 Vaginitis 67330889 N76.0 Extended swab sent today. Recommend use of boric acid therapy suppressio n.Will treatment as needed once get ext panel results back.VCG sheet also given for add'l home review. Time spent in visit is a total of 30 mins with at least 50% of visit consisting of counseling and review of plan of care. Removal of subcutaneous contraceptive [id number] Z30.46 Removal site was cleansed with betadine and 3cc of lidocaine used for anesthesia . Device was removed in normal fashion without difficulty . Steri stips and pressure bandage placed. Opts to use condoms for BC if becomes SA. [id number] Kathryn Bynum RAUL [place] [address] [address] 08/16/2022 10:43:26 08/16/2022 12:14:53 Gynecologic examination 44887242 Z01.419 Z11.3 Z11.8 Take Calcium with Vitamin [...] review of plan of care. Vaginal discharge 063036 006 N89.8 Pain in pelvis 04109147 R10.2 Venereal d isease screening 890253149 Z11.3 [id number] ROSCOE DAVIS MD [place] [address] [address] 10/03/2024 11:58:08 10/04/2024 12:08:35 Vaginitis 09242980 N76.0 - patient reports green vaginal discharge- desires self swab, collected today- will treat based on results Atypical s quamous cells of undetermined significance on cervical Papanicolaou smear 993431285 R87.610 - hx of ASCUS, neg HPV pap smear with PCP In 07/2024- reports hx of ASCUS, +HPV previously - discussed ASCUS result and recommenda tion for repeat pap smear in 3 years to continue to monitor- discussed natural history and progressio n of HPV infection, and need for continued surveillan ce Sterilizat ion requested [id number] Z30.2 - patient desires permanent sterilizat ion- [...] [place] Member ID Guarantor Name 07/10/2022 1 [facility]MERLY [facility] (MEDICAID O) [id number] Romelia Fish [id number] Romelia Abe 08/16/2022 1 FORMERLY [facility] (MEDICAID HMO) [id number] Romelia Fish [id number] Romelia Abe 10/03/2024 2 [place] [facility] Romelia Fish [id number] Romelia Abe 10/03/2024 1 [employer] (MEDICARE REPLACEMENT PPO) [id number] Romelia Fish [id number] Romelia Fish Notes Date Note Type Note Provider Name and Address Organization Details Recorded Time 07/10/2022 text/html Vaginal/Vulvar ProblemReported bypatient.Location:[facility] Onset/Timing:present most months; gradual Duration:present [...] daughter (11/2020) BEAU Thomas- [address], [place], [address], [facility] 07/13/2022 15:38:00 08/16/2022 text/html Annual [...] age 38 BEAU Salomon [address], [place], [address], [facility] 08/16/2022 11:45:14 10/03/2024 text/html Patient [...] periods. ROSCOE DAVIS MD [address], [place], [address], [facility] 10/04/2024 11:14:27 OBGyn Episode Ob Episode Information Episode Created Date Number of Fetuses Patient Bloodtype Patient rh Status Prepregnancy Weight lbs Domestic Partner Domestic Partner Phone Father Name Wood Getter Status 07/10/20 22 1 CLOSED Fetus Data First Name Last Name Admitted to NICU Weight (g) Sex Living Outcome Pediatric Complications Fetus ID Race Codes Race Delivery Type 2324.65 9 F Prematur e [id number] Vaginal Delivery Rodrigo Calculation Initial Rodrigo Date [...] Domestic Partner Domestic Partner Phone Father Name Wood Getter Status 07/10/20 22 1 CLOSED Fetus Data First Name Last Name Admitted to NICU Weight (g) Sex Living Outcome Pediatric Complications Fetus ID Race Codes Race Delivery Type 2438.05 7 F Full Term [id number] Vaginal Delivery Rodrigo Calculation Initial Rodrigo Date [...]
== END 2024-12-27 12:09 | disposition home or self-care (01) ==
LOC: CHSIMG 12:10
PROVIDERS: PCP Family Medicine; Visit Provider Family Medicine
DX: R10.9 Unspecified abdominal pain (principal); Z3A.01 Less than 8 weeks gestation of pregnancy
CPT/HCPCS: 76801; 76817

== ENCOUNTER 2025-11-04 13:53 | Outpatient (CLI) | payer MEDICARE, MEDICAID, SELFPAY ==
--- NOTE | 2025-11-04 13:58 | ECG_ITS ---
Test Date: 2025-11-04 14:08:42 Measurements Intervals [place] Rate: 76 P: 70 WV: 145 QRS: 78 QRSD: 105 T: 66 QT: 383 QTc: 432 Interpretive Statements SINUS RHYTHM INCOMPLETE RIGHT BUNDLE BRANCH BLOCK MINIMAL Q WAVES- INF/LAT LEADS BORDERLINE ECG No previous ECG available for comparison Electronically Signed On 11-04-2025 15:14:34 FOREST FIRE FIGHTERS DISPATCHER by Jared Apple D.O.
== END 2025-11-04 13:54 | disposition home or self-care (01) ==
PROVIDERS: PCP Family Medicine; Visit Provider Internal Medicine Cardiovascular Disease
DX: Z72.0 Tobacco use (principal); I45.19 Other right bundle-branch block
CPT/HCPCS: 93005